=== PATIENT | female | born 1985 | race Hispanic/Latino ===

== ENCOUNTER 2017-06-06 18:43 | Inpatient (IN) | payer OTHER, MEDICAID ==
[~2017-06-06] VITALS: Ht 167.6 cm; Wt 112.5 kg
[2017-06-06 19:31] VITALS: BP 128/78
[2017-06-06 19:51] LABS: APPEARANCE,URINE Cloudy (CLEAR); BILIRUBIN,URINE Negative (NEGATIVE); COLOR,URINE Yellow (YELLOW); GLUCOSE, URINE (UA) Negative (NEGATIVE); KETONES,URINE Negative (NEGATIVE); LEUKOCYTE ESTERASE ,URINE Moderate (NEGATIVE); NITRATE,URINE Negative (NEGATIVE); OCCULT BLOOD,URINE Negative (NEGATIVE); PH,URINE 5.5 (5.0-8.0); PROTEIN,URINE Trace (NEGATIVE)
[2017-06-06 20:14] LABS: SQUAMOUS EPITHELIAL CELL,UR 30-50 /HPF (0-2)
[2017-06-06 20:15] LABS: BACTERIA,URINE Few /HPF (None Seen); RBC,URINE None Seen /HPF (0-1); WBC,URINE 26-50 /HPF (0-1)
[2017-06-06 20:26] LABS: HEMATOCRIT 31.8 % (36-48); MEAN CORPUSCULAR HEMOGLOBIN 28.2 pg (27.0-33.0); MEAN CORPUSCULAR HGB CONC 34.1 g/dL (32.0-36.0); MEAN CORPUSCULAR VOLUME 82.6 fL (79-99); PLATELET COUNT (AUTO) 259 K/uL (130-400); RED BLOOD CELL COUNT(AUTO) 3.85 MIL/uL (4.00-5.50); RED CELL DISTRIBUTION WIDTH 14.2 % (11.0-15.5); WHITE BLOOD COUNT (AUTO) 10.4 K/uL (4.8-10.8)
[2017-06-06] MEDS: LACTATED RINGERS 1000ML 1,000 ML IV PRN (20:33)
[2017-06-07] MEDS ORDERED: PREN1TAB89 PO (01:49)
[2017-06-07] MEDS: LACTATED RINGERS 1000ML 1,000 ML IV PRN (04:18)
[2017-06-07] MEDS ORDERED: CEFAZOLIN SODIUM 1 GM VIAL IVP PRN (11:30)
[2017-06-07] MEDS ORDERED: LACTATED RINGERS 1000ML 1,000 ML IV SCH (11:30)
[2017-06-07] MEDS ORDERED: SENSORCAINE/DEXT/PF 0.75% 2ML AMP IJ ONE (11:38)
[2017-06-07] MEDS ORDERED: FENTANYL CITRATE PF 50 MCG/1 ML 2ML VIAL ONE (11:40)
[2017-06-07] MEDS ORDERED: CEFAZOLIN SODIUM 1 GM VIAL IVP ONE (12:08)
[2017-06-07] MEDS ORDERED: OXYTOCIN 10 UNIT/1ML 10ML VIAL ONE (12:13)
[2017-06-07] MEDS ORDERED: DEXAMETHASONE SOD PHOSPHATE 10MG/ML 1ML VIAL ONE (12:13)
[2017-06-07] MEDS ORDERED: ONDANSETRON HCL MDV 20ML 2 MG/ML VIAL ONE (12:58)
[2017-06-07] MEDS ORDERED: OXYTOCIN-LR 20 UNITS/1000 ML 1,000 ML IV PRN (14:14)
[2017-06-07] MEDS ORDERED: SODIUM CHLORIDE 0.9% 10 ML VIAL IVP PRN (14:15)
[2017-06-07] MEDS ORDERED: OXYTOCIN 10 USP UNITS/ML ONE (14:21)
[2017-06-07] MEDS ORDERED: METOCLOPRAMIDE 10 MG/2 ML VIAL IVP PRN (14:30)
[2017-06-07] MEDS ORDERED: NALOXONE HCL 0.4 MG/1 ML ML IVP PRN ×2 (14:30)
[2017-06-07] MEDS ORDERED: PROMETHAZINE HCL 25 MG/ML 1ML AMPULE IM PRN (14:30)
[2017-06-07] MEDS ORDERED: DiphenhydrAMINE HCL 50 MG/ML VIAL IVP PRN (14:30)
[2017-06-07] MEDS ORDERED: MORPHINE SULFATE 2 MG/ML 1ML SYG IVP PRN (14:30)
[2017-06-07] MEDS ORDERED: HYDROCODONE/ACETAMINOPHEN 5/325 MG TAB PO PRN (14:30)
[2017-06-07] MEDS ORDERED: EPHEDRINE SULFATE 50 MG/ML AMPULE IVP PRN (14:30)
[2017-06-07] MEDS ORDERED: ONDANSETRON HCL 4 MG/2 ML 8 MG in SODIUM CHLORIDE 0.9% 50 ML IVP NR (14:30)
[2017-06-07] MEDS ORDERED: ONDANSETRON HCL MDV 20ML 2 MG/ML VIAL IVP PRN ×2 (14:30)
[2017-06-07 14:40] VITALS: BP 127/78
[2017-06-07] MEDS: PROMETHAZINE HCL 25 MG/ML 1ML AMPULE IM PRN ×2 (14:42→21:46)
[2017-06-07] MEDS: MEPERIDINE-PF 75 MG/ML SYG IM PRN ×2 (14:43→21:47)
[2017-06-07] MEDS: HYDROCODONE/ACETAMINOPHEN 5/325 MG TAB PO PRN (16:55)
[2017-06-07 19:54] VITALS: BP 129/74
[2017-06-07] MEDS: DEXTROSE 5 %-0.45 % NACL 1,000 ML IV PRN (21:50)
[2017-06-07 23:23] VITALS: BP 105/58
[2017-06-08 03:42] VITALS: BP 97/57
[2017-06-08] MEDS: DEXTROSE 5 %-0.45 % NACL 1,000 ML IV PRN (04:19)
[2017-06-08] MEDS: HYDROCODONE/ACETAMINOPHEN 5/325 MG TAB PO PRN (04:19)
[2017-06-08 05:36] LABS: HEMATOCRIT 30.2 % (36-48); MEAN CORPUSCULAR HEMOGLOBIN 28.8 pg (27.0-33.0); MEAN CORPUSCULAR HGB CONC 34.4 g/dL (32.0-36.0); PLATELET COUNT (AUTO) 251 K/uL (130-400); RED CELL DISTRIBUTION WIDTH 14.2 % (11.0-15.5); WHITE BLOOD COUNT (AUTO) 11.1 K/uL (4.8-10.8)
[2017-06-08] MEDS ORDERED: LANOLIN 30GM OINTMENT TP PRN (06:15)
[2017-06-08] MEDS ORDERED: HYDROCODONE/ACETAMINOPHEN 5/325 MG TAB PO PRN (06:15)
[2017-06-08] MEDS ORDERED: BISACODYL 10 MG SUPP.RECT RC PRN (06:15)
[2017-06-08] MEDS ORDERED: ACETAMINOPHEN EXTRA STRENGTH 500 MG TABLET PO PRN (06:15)
[2017-06-08] MEDS ORDERED: ACETAMINOPHEN-CODEINE 300/30MG TAB PO PRN (06:15)
[2017-06-08 07:38] VITALS: BP 106/67
[2017-06-08] MEDS: SIMETHICONE 80 MG TAB.CHEW PO PRN ×2 (09:47→21:19)
[2017-06-08] MEDS: DIPH,PERTUSS(ACELL),TET VAC/PF 0.5 ML VIAL IM SCH (09:47)
[2017-06-08] MEDS: IBUPROFEN 600 MG TABLET PO PRN ×2 (09:47→19:44)
[2017-06-08] MEDS: DOCUSATE SODIUM 100 MG CAP PO SCH ×2 (09:47→21:19)
[2017-06-08 11:22] LABS: HEPATITIS Bs ANTIGEN SCREEN P Negative (Negative)
[2017-06-08 11:31] VITALS: BP 117/72
[2017-06-08 15:50] VITALS: BP 126/80
[2017-06-08 19:53] VITALS: BP 120/75
[2017-06-09 00:28] VITALS: BP 112/70
[2017-06-09 03:51] VITALS: BP 109/66
[2017-06-09] MEDS: DIPH,PERTUSS(ACELL),TET VAC/PF 0.5 ML VIAL IM SCH (06:15)
[2017-06-09 07:28] VITALS: BP 121/73
[2017-06-09] MEDS: DOCUSATE SODIUM 100 MG CAP PO SCH (08:35)
[2017-06-09] MEDS: IBUPROFEN 600 MG TABLET PO PRN (08:35)
[2017-06-09] MEDS: SIMETHICONE 80 MG TAB.CHEW PO PRN (08:35)
== END 2017-06-09 11:20 | disposition home or self-care (01) | DRG 766 ==
LOC: LDH 18:43 → OBSVTOIN 18:43 → WSH 06-07 14:37
PROVIDERS: ADMIT Obstetrics & Gynecology; ATTEND Obstetrics & Gynecology
PROC: 3E0234Z Introduction of Serum, Toxoid and Vaccine into Muscle, Percutaneous Approach (ICD-10-PCS; 2017-06-07)
PROC: 10D00Z1 Extraction of Products of Conception, Low, Open Approach (ICD-10-PCS; principal; 2017-06-07 11:30)
DX: O76 Abnormality in fetal heart rate and rhythm complicating labor and delivery (principal); O34.211 Maternal care for low transverse scar from previous cesarean delivery; O69.1XX0 Labor and delivery complicated by cord around neck, with compression, not applicable or unspecified; Z37.0 Single live birth; Z3A.39 39 weeks gestation of pregnancy; Z23 Encounter for immunization
CPT/HCPCS: 36415; 59510; 81001; 85027; 86592; 86850; 86900; 86901; 87340; 90715; A4344; A4450; A4606; J0690; J1100; J2175; J2550; J2590; J3010; J3490; J7120

== ENCOUNTER 2018-04-21 21:15 | Emergency (ER) | payer MEDICAID, OTHER ==
[~2018-04-21 21:15] MED LIST: PREN1TAB89 PO
[2018-04-21] MEDS ORDERED: SIMETHICONE 80 MG TAB.CHEW ONE (22:52)
[2018-04-21] MEDS ORDERED: ONDANSETRON ODT 4 MG TAB ONE (22:52)
[2018-04-21] MEDS ORDERED: HYOSCYAMINE SULFATE 0.125 MG TAB.SUBL SL ONE (22:52)
== END 2018-04-21 23:23 | disposition home or self-care (01) ==
LOC: EDH 21:15
DX: R19.7 Diarrhea, unspecified (principal); R11.0 Nausea; R50.9 Fever, unspecified; Z98.890 Other specified postprocedural states

== ENCOUNTER 2019-05-02 07:23 | Day surgery (SDC) | payer OTHER, MEDICAID ==
[2019-05-01 15:28] LABS: BASOPHILS % (AUTO) 0.4 % (0.0-5.0); EOSINOPHILS % (AUTO) 1.3 % (0.0-8.0); HEMATOCRIT 38.4 % (36-48); LYMPHOCYTES % (AUTO) 27.9 % (21.0-51.0); MEAN CORPUSCULAR HEMOGLOBIN 28.2 pg (27.0-33.0); MEAN CORPUSCULAR VOLUME 88.1 fL (79-99); MONOCYTES % (AUTO) 5.4 % (3.0-13.0); NEUTROPHILS % (AUTO) 64.9 % (40.0-77.0); PLATELET COUNT (AUTO) 276 K/uL (130-400); RED BLOOD CELL COUNT(AUTO) 4.36 MIL/uL (4.00-5.50); RED CELL DISTRIBUTION WIDTH 13.2 % (11.0-15.5); WHITE BLOOD COUNT (AUTO) 7.1 K/uL (4.8-10.8)
[2019-05-01] MEDS: CEFAZOLIN SODIUM 1 GM VIAL IVP SCH (15:45)
[2019-05-01 15:57] VITALS: BP 113/80
[~2019-05-02] VITALS: Ht 167.6 cm; Wt 110.7 kg
[2019-05-02] VITALS (18 sets, daily range): BP systolic 93–121; BP diastolic 48–78
[~2019-05-02 07:23] MED LIST changes: +CALDOLOR 800MG+NS 250ML 250 ML IV SCH; +LACTATED RINGERS 1000ML 1,000 ML IV SCH; -PREN1TAB89 PO
[2019-05-02] MEDS ORDERED: OXYTOCIN 10 USP UNITS/ML ONE (08:18)
[2019-05-02] MEDS ORDERED: MIDAZOLAM HCL 1 MG/ML 2ML VIAL ONE (08:19)
[2019-05-02] MEDS ORDERED: SUCCINYLCHOLINE 200MG/10ML SYR ONE (08:19)
[2019-05-02] MEDS ORDERED: DEXAMETHASONE SOD PHOSPHATE 10MG/ML 1ML VIAL ONE (08:19)
[2019-05-02] MEDS ORDERED: LIDOCAINE PF 2% 5ML ABBOJECT ONE (08:19)
[2019-05-02] MEDS ORDERED: FENTANYL CITRATE PF 50 MCG/1 ML 2ML VIAL ONE (08:20)
[2019-05-02] MEDS ORDERED: GLYCOPYRROLATE 1 MG/5 ML SYRINGE ONE (08:20)
[2019-05-02] MEDS ORDERED: ONDANSETRON HCL 4 MG/2 ML VIAL ONE (08:20)
[2019-05-02] MEDS ORDERED: NEOSTIGMINE 5MG/5ML SYR IV ONE (08:20)
[2019-05-02] MEDS ORDERED: ROCURONIUM 10MG/1ML SYR 10 MG/ML ML ONE (08:20)
[2019-05-02] MEDS ORDERED: PROPOFOL 10 MG/ML 20ML VIAL IV ONE ×2 (08:20→09:03)
[2019-05-02] MEDS: CEFAZOLIN SODIUM 1 GM VIAL IVP SCH (08:50)
[2019-05-02] MEDS ORDERED: METHYLERGONOVINE MALEATE 0.2 MG/1 ML ML ONE (09:49)
[2019-05-02] MEDS ORDERED: METHYLERGONOVINE MALEATE 0.2 MG/1 ML ML IM NR (10:00)
--- NOTE | 2019-05-02 10:25 | NUR ---
POST RECEIVED PT FROM PACU, S/P D&C OB PAD IN PLACE WITH MODERATE AMOUNT OF BLOOD NOTED. PT AWAKE AND ALERT, NO DISTRESS NOTED. VS STABLE ON ARRIVAL. CALL LIGHT WITHIN REACH.
--- NOTE | 2019-05-02 11:04 | NUR ---
dc pt dc home via wc,no distress noted. pt accompanied by spouse, pt denies any pain or discomforts. dc intructions reinforced with patient / spouse ob pad dry after it was changed when she arrived from pacu.
== END 2019-05-02 11:04 | disposition home or self-care (01) ==
LOC: DAH 07:23
PROVIDERS: ATTEND Obstetrics & Gynecology
DX: O02.1 Missed abortion (principal); J45.20 Mild intermittent asthma, uncomplicated; Z3A.10 10 weeks gestation of pregnancy; Z83.3 Family history of diabetes mellitus
CPT/HCPCS: 36415; 59820; 85025; 86850; 86900; 86901; A4215; A4221; A4222; A4223; A4351; A4663; A6260; J0330; J0690; J1100; J1741; J2001; J2210; J2250; J2405; J2590; J2704 ×2; J2710; J3010; J3490; J7120